=== PATIENT | female | born 2000 | race Caucasian/White ===

== ENCOUNTER 2024-08-08 15:03 | Emergency (ER) | payer BC ==
[2024-08-08] MEDS ORDERED: Dexamethasone 10 MG/ML VIAL ONE (15:58)
[2024-08-08] MEDS ORDERED: Ipratropium/Albuterol 3 ML NEB ONE (16:04)
== END 2024-08-08 18:05 | disposition home or self-care (01) ==
LOC: EDBD → CSHERS 15:03
DX: J45.901 Unspecified asthma with (acute) exacerbation (principal); F41.9 Anxiety disorder, unspecified; F32.A Depression, unspecified
CPT/HCPCS: 87428; 93005; 96372; 99285; J1100; J7620